=== PATIENT | female | born 1965 | race Caucasian/White ===

== ENCOUNTER → 2021-06-30 12:27 | Outpatient (CLI) | payer OTHER, MEDICAID, SELFPAY ==
--- NOTE | 2021-06-30 | DI.MG.S_ITS ---
BILATERAL DIGITAL SCREENING MAMMOGRAM 3D/2D WITH CAD: 06/30/2021 CLINICAL: Routine screening. Family history of breast cancer. Comparison is made to exams dated: 01/11/2020 mammogram, 01/11/2020 ultrasound, 03/19/2019 mammogram, and 03/12/2018 mammogram - outside. There are scattered fibroglandular elements in both breasts. Current study was also evaluated with a Computer Aided Detection (CAD) system. No significant masses, calcifications, or other findings are seen in either breast. There has been no significant interval change. IMPRESSION: NEGATIVE There is no mammographic evidence of malignancy. A 1 year screening mammogram is recommended. This exam was interpreted at Station ID: [id number]. NOTE: For mammograms, a report in lay terms will be sent to the patient. Approximately 15% of breast malignancies will not be visualized mammographically. In the management of a palpable breast mass, a negative mammogram must not discourage biopsy of a clinically suspicious lesion. Electronically Signed By: Elsa bernard/cristy:06/30/2021 14:36:58 letter sent: Normal Exam ACR BI-RADS Category 1: Negative 3341F
== END ==
PROVIDERS: PCP Family Medicine; Referring Provider Family Medicine; Visit Provider Family Medicine
DX: Z12.31 Encounter for screening mammogram for malignant neoplasm of breast (principal); Z80.3 Family history of malignant neoplasm of breast
CPT/HCPCS: 77063; 77067

== ENCOUNTER → 2022-07-02 12:46 | Outpatient (CLI) | payer OTHER, MEDICAID, SELFPAY ==
--- NOTE | 2022-07-02 | DI.MG.S_ITS ---
BILATERAL DIGITAL SCREENING MAMMOGRAM 3D/2D WITH CAD: 07/02/2022 CLINICAL: Routine screening. Family history of breast cancer. Comparison is made to exams dated: 06/30/2021 mammogram - [facility], 01/11/2020 mammogram, and 03/19/2019 mammogram - outside. There are scattered areas of fibroglandular density in both breasts (category b / 25%-50% glandular tissue). Current study was also evaluated with a Computer Aided Detection (CAD) system. No significant masses, calcifications, or other findings are seen in either breast. There has been no significant interval change. IMPRESSION: NEGATIVE There is no mammographic evidence of malignancy. A 1 year screening mammogram is recommended. Based on the Tyrer Cuzick model (a risk assessment model) the patient's lifetime risk is 7.6% and her 10 year risk is 2.9%. According to the ACR, ACS, and NCCN guidelines, an annual breast MRI exam along with mammogram is recommended if the patient's lifetime risk is 20% or greater. This exam was interpreted at Station ID: [id number]. NOTE: For mammograms, a report in lay terms will be sent to the patient. Approximately 15% of breast malignancies will not be visualized mammographically. In the management of a palpable breast mass, a negative mammogram must not discourage biopsy of a clinically suspicious lesion. Electronically Signed By: Vinnie valle/cristy:07/02/2022 13:20:13 letter sent: Normal Exam ACR BI-RADS Category 1: Negative 3341F
== END ==
PROVIDERS: PCP Family Medicine; Referring Provider Family Medicine; Visit Provider Family Medicine
DX: Z12.31 Encounter for screening mammogram for malignant neoplasm of breast (principal); Z80.3 Family history of malignant neoplasm of breast
CPT/HCPCS: 77063; 77067

== ENCOUNTER 2023-05-24 18:01 | Emergency (ER) | payer OTHER, MEDICAID, SELFPAY ==
[2023-05-24] VITALS (12 sets, daily range): BP systolic 137–165; BP diastolic 63–100; PULSE 74–88; RESP 16–20; TEMP 36.6; O2SAT 97–99; BMI 30.2
--- NOTE | 2023-05-24 18:09 | DI.RAD.S_ITS ---
PROCEDURE: XR CHEST 1V INDICATIONS: chest pain TECHNIQUE: One view of the chest was acquired. COMPARISON: None. FINDINGS: Surgical changes and devices: None. Lungs and pleura: Lungs are clear. No pleural effusions or pneumothorax. Mediastinum: Mediastinal contours appear normal. Heart size is normal. Bones and chest wall: No suspicious bony lesions. Overlying soft tissues appear unremarkable. IMPRESSION: No acute cardiopulmonary abnormality is seen. Dictated by: Tiago Trevizo M.D. on 05/24/2023 at 19:10 Approved by: Tiago Trevizo M.D. on 05/24/2023 at 19:10
[2023-05-24 18:47] LABS: Add Manual Diff / Slide Review NO; Basophils Absolute Auto 100 /uL (0-100); Basophils Percent Auto 0.8 % (0-2); Eosinophils Absolute Auto 200 /uL (0-450); Eosinophils Percent Auto 1.8 % (2-4); Hematocrit 42.2 % (36-46); Hemoglobin 14.5 g/dL (12.0-16.0); Lymphocytes Absolute Auto 4600 /uL (1100-4500); Lymphocytes Percent Auto 45.6 % (25-40); Mean Corpuscular HGB Conc 34.4 % (30-36); Mean Corpuscular Hemoglobin 30.5 PG (26-34); Mean Corpuscular Volume 88.7 fL (80-100); Monocytes Absolute Auto 700 /uL (0-900); Monocytes Percent Auto 7.4 % (3-14); Neutrophils Absolute Auto 4400 /uL (1500-7000); Neutrophils Percent Auto 44.4 % (50-75); Platelet Count 276 X10^3/uL (150-400); Red Blood Cell Count 4.76 X10^6/uL (4.0-5.2); Red Cell Distribution Width 13.4 % (11.6-14.8)
--- NOTE | 2023-05-24 18:52 | ED_ITS ---
HPI - Chest Pain General Chief Complaint: Chest Pain Stated Complaint: heart palpitations/SOB Time Seen by Provider: 05/24/23 18:25 Source: patient Mode of arrival: Ambulatory Limitations: no limitations History of Present Illness HPI narrative: 57-year-old female with history of hypothyroidism who presents with a sense of racing heart rate and palpitations and feeling a little bit short of breath or winded. Patient states she woke up feeling this way this morning it has been all day. It is never really resolved she feels it while were in the room. States no fevers or chills. No cold cough or congestion. She denies any chest pain or pressure. He is felt slightly short of breath. Denies any syncope but felt a little lightheaded. No nausea or vomiting, no issues such as diarrhea constipation, no black or bloody stools. No urinary symptoms. No swelling in extremities. Patient is on levothyroxine 112 mcg daily no recent changes. Patient states she has had a cholecystectomy more than 10 years ago, allergic to erythromycin. No tobacco, alcohol no weekend, no recreational drugs. No long distance travel, no sitting for prolonged periods, no estrogen or progesterone. Patient does not have any known cardiac history. Related Data Allergies Allergy/AdvReac Type Severity Reaction Status Date / Time erythromycin base Allergy Verified 05/24/23 19:25 Review of Systems Review of Systems ROS Unobtainable: All systems reviewed & are unremarkable except as noted in HPI and below Patient History alcohol intake frequency: a few times a week Exam Narrative Exam Narrative: GENERAL: Alert and oriented x three, female in mild distress HEENT: Head normocephalic, atraumatic, EOMI, pupils reactive, face symmetric, moist mucous membranes NECK: Supple, full range of motion CARDIOVASCULAR: Regular rate and rhythm without murmurs, rubs or gallops. No JVD. No edema bilateral lower extremities. RESPIRATORY: Breath sounds equal bilaterally, no wheezes rales or rhonchi. No tachypnea or accessory muscle use. ABDOMEN: Soft, nontender. Normoactive bowel sounds all 4 quadrants. No guarding or rebound, rigidity, no mass : No CVA tenderness EXTREMITIES: Normal range of motion, no clubbing or edema. Neurovascularly intact NEUROLOGICAL: Cranial nerves II through XII grossly intact. Moving all extremities SKIN: Warm, dry, no petechiae, no rashes or lesions. Initial Vital Signs Initial Vital Signs: Vital Signs Temperature 97.8 F 05/24/23 18:06 Pulse Rate 82 05/24/23 18:06 Respiratory Rate 16 05/24/23 18:06 Blood Pressure 162/100 H 05/24/23 18:06 Pulse Oximetry 98 05/24/23 18:06 Oxygen Delivery Method Room Air 05/24/23 18:06 Scores HEART Score Heart Score history: Slightly Suspicious Heart Score EKG: Non-Specific repolarization disturbance Heart Score Age: 45-64 years old Heart Score risk factors: No known risk factors Heart Score troponin: < or = to normal limit Heart Score Total: 2 PERC Score Age greater than or equal to 50 years: Yes Heart rate greater than or equal to 100 bpm: No Room Air O2 Sat less than 95%: No Unilateral leg swelling: No Recent trauma or surgery: No Hemoptysis: No Prior PE or DVT: No Hormone Use: No Total PERC Score: 1 Course Orders Ordered: ED Orders 05/24/23 18:09 XR chest 1V Stat 05/24/23 18:16 EKG-12 Lead Stat 05/24/23 18:30 Complete Blood Count AUTO DIFF Stat Comprehensive Metabolic Panel Stat D Dimer Stat Lipase Stat Magnesium Stat PTT Partial Thromboplastin Art Stat Prothrombin Time INR Stat TSH [Thyroid Stimulating Hormone] Stat Troponin & CK Cardiac Panel Stat Discontinued Medications Aspirin (Aspirin 81 Mg Chew Tab) 324 mg PO NOW ONE Stop: 05/24/23 18:10 Last Admin: 05/24/23 19:30 Dose: Not Given Documented By: JOSE Sodium Chloride (Normal Saline 0.9%) 1,000 mls @ 1,000 mls/hr IV BOLUS ONE Stop: 05/24/23 20:02 Last Infusion: 05/24/23 20:24 Dose: Infused Documented By: Admin: 05/24/23 19:24 Dose: 1,000 mls/hr Documented By: CORBIN Vital Signs Vital signs: Vital Signs - 8 hr 05/24/23 18:06 05/24/23 18:25 05/24/23 18:28 Temperature 97.8 F Pulse Rate 82 88 Respiratory Rate 16 Blood Pressure 162/100 H 137/65 Pulse Oximetry 98 99 Oxygen Delivery Method Room Air 05/24/23 18:28 05/24/23 18:30 05/24/23 18:30 Temperature Pulse Rate 82 84 Respiratory Rate 20 19 Blood Pressure 150/70 H Pulse Oximetry 99 98 Oxygen Delivery Method 05/24/23 19:00 05/24/23 19:00 05/24/23 19:16 Temperature Pulse Rate 81 77 Respiratory Rate 19 16 Blood Pressure 165/72 H Pulse Oximetry 98 97 Oxygen Delivery Method 05/24/23 19:16 05/24/23 19:30 05/24/23 19:30 Temperature Pulse Rate 77 Respiratory Rate 18 Blood Pressure 144/63 H 143/63 H Pulse Oximetry 97 Oxygen Delivery Method 05/24/23 20:00 05/24/23 20:01 05/24/23 20:04 Temperature Pulse Rate 74 77 Respiratory Rate 20 20 Blood Pressure 149/66 H Pulse Oximetry 98 98 Oxygen Delivery Method 05/24/23 20:04 05/24/23 20:31 05/24/23 20:32 Temperature Pulse Rate 77 82 Respiratory Rate 18 20 Blood Pressure 151/66 H Pulse Oximetry 99 97 Oxygen Delivery Method MDM - Chest Pain Lab Data 05/24/23 18:30 05/24/23 18:30 Labs: Lab Results 05/24/23 Range/Units 18:30 WBC 10.0 (4.5-11.0) X10^3/uL RBC 4.76 (4.0-5.2) X10^6/uL Hgb 14.5 (12.0-16.0) g/dL Hct 42.2 (36-46) % MCV 88.7 (80-100) fL MCH 30.5 (26-34) PG MCHC 34.4 (30-36) % RDW 13.4 (11.6-14.8) % Plt Count 276 (150-400) X10^3/uL Neut % (Auto) 44.4 L (50-75) % Lymph % (Auto) 45.6 H (25-40) % [place] % (Auto) 7.4 (3-14) % Eos % (Auto) 1.8 L (2-4) % Baso % (Auto) 0.8 (0-2) % Neut # (Auto) 4400 (6133-7806) /uL Lymph # (Auto) 4600 H (9815-1314) /uL [place] # (Auto) 700 (0-900) /uL Eos # (Auto) 200 (0-450) /uL Baso # (Auto) 100 (0-100) /uL PT 11.5 (9.4-12.5) SECONDS INR 1.0 (0.9-1.3) APTT 33 (25.1-36.5) SECONDS D-Dimer < 215 (<500) ng/ml Sodium 138 (137-145) mmol/L Potassium 3.6 (3.4-5.1) mmol/L Chloride 104 (98-107) mmol/L Carbon Dioxide 28 (22-32) mmol/L BUN 20 H (7-17) mg/dL Creatinine 0.73 (0.52-1.04) mg/dL Estimated GFR > 60 (>60) mL/min BUN/Creatinine Ratio 27.4 H (6-22) Glucose 95 (70-100) mg/dL Calcium 9.1 (8.4-10.2) mg/dL Magnesium 2.1 (1.6-2.3) mg/dL Total Bilirubin 1.3 (0.2-1.3) mg/dL AST 27 (14-36) IU/L ALT 22 (<35) IU/L Alkaline Phosphatase 81 (38-126) U/L Total Creatine Kinase 169 H (30-135) U/L Troponin I < 0.012 (0.01-0.034) ng/mL Total Protein 7.5 (6.3-8.2) g/dL Albumin 4.3 (3.5-5.0) g/dL Globulin 3.2 (1.7-4.1) g/dL Albumin/Globulin Ratio 1.3 (1.0-2.8) Lipase 136 (23-300) U/L TSH 1.16 (0.47-4.68) uIU/mL Imaging Data Chest x-ray: Radiologist's Impression: Sumi Jeong??57??F??1965 ? Allergy/Adv: erythromycin base Close Chest X-Ray (Signed) Tiago Trevizo - 05/24/23 Mammogram Screening (Signed) Vinnie Tompkins - 07/02/22 Mammogram Screening (Signed) Elsa Julio - 06/30/21 Launch?[address] [address] XRay Report Signed Patient: Sumi Jeong MR#: [id number] : 1965 Acct:[id number] Age/Sex: 57 / F Date of Service: 05/24/23 Loc: ED Accession Number: [id number] Procedure: XR chest 1V Ordering Provider: Merlene Ratliff D.O. PROCEDURE: XR CHEST 1V INDICATIONS: chest pain TECHNIQUE: One view of the chest was acquired. COMPARISON: None. FINDINGS: Surgical changes and devices: None. Lungs and pleura: Lungs are clear. No pleural effusions or pneumothorax. Mediastinum: Mediastinal contours appear normal. Heart size is normal. Bones and chest wall: No suspicious bony lesions. Overlying soft tissues appear unremarkable. IMPRESSION: No acute cardiopulmonary abnormality is seen. Dictated by: Tiago Trevizo M.D. on 05/24/2023 at 19:10 Approved by: Tiago Trevizo M.D. on 05/24/2023 at 19:10 ECG Data Attestation: I personally reviewed and interpreted this ECG as follows: Prior ECG tracings: not available for review Interpretation: Sinus rhythm with premature atrial complexes, rate 83 RI 140 QRS is 74 QTC of 394. Patient does appear to have a P wave with a QRS, does not appear to have any dropped beats or prolonging RI intervals. Patient does have some depression in lateral leads. No ST Elevation. No priors for comparison. [facility] Narrative Medical decision making narrative: 57-year-old female comes in with complaint of palpitations, racing sensation of heartbeat and a little bit of shortness of breath. No chest pain or pressure. Does have some depression in lateral leads, has frequent PACs and noted on telemetry as well but not tachycardic and does not appear to be in atrial fibrillation for have heart block. Patient symptoms starting this morning greater than 12 hours. CBC shows normal white count hemoglobin and platelets, neutrophils are low with elevation lymphocytes. INR PTT are negative, BUN 20 sodium is 138 potassium 3 6, glucose 95 with normal renal function and magnesium 2.1, LFTs are negative total CK is 169, troponin is negative TSH is normal range at 1.16 Dimer is negative Chest x-ray is negative. Patient has frequent PACs does not appear to have atrial fibrillation or block. Did have a L of fluids seems to be somewhat helpful. Patient's labs are overall appropriate and felt appropriate for discharge for follow-up. Discharge Plan Departure Patient Disposition: Home Clinical Impression: Palpitations Instructions: DI for Palpitations Activity Restrictions/Additional Instructions: Follow-up with your physician for recheck, they may order a test follow your rhythm at home such as ZIO patch or Holter monitor. Your EKG today showed frequent premature atrial complexes but no other arrhythmias or changes. Your labs overall are appropriate, chest x-ray was negative. Would recommend making sure to hydrate regularly and follow up with your physician. Please return for new or worsening chest pain, shortness of breath, passing out, new swelling in your extremities, persistently fast or irregular heart rate or other new or concerning changes. Referrals: Dae Verma MD [Primary Care Provider] - Stand Alone Forms: Patient Portal/API
[2023-05-24 18:53] LABS: Prothrombin Time 11.5 SECONDS (9.4-12.5)
[2023-05-24 18:55] LABS: PTT Partial Thromboplastin Tim 33 SECONDS (25.1-36.5)
[2023-05-24 18:57] LABS: Alanine Aminotransferase 22 IU/L (<35); Albumin 4.3 g/dL (3.5-5.0); Albumin Globulin Ratio 1.3 (1.0-2.8); Alkaline Phosphatase 81 U/L (38-126); Aspartate Aminotransferase 27 IU/L (14-36); BUN Creatinine Ratio 27.4 (6-22); Bilirubin Total 1.3 mg/dL (0.2-1.3); Blood Urea Nitrogen 20 mg/dL (7-17); Calcium 9.1 mg/dL (8.4-10.2); Carbon Dioxide 28 mmol/L (22-32); Chloride 104 mmol/L (98-107); Creatine Kinase 169 U/L (30-135); Estimated Glomerular Filt Rate > 60 mL/min (>60); Globulin 3.2 g/dL (1.7-4.1); Glucose 95 mg/dL (70-100); HEMOLYSIS < 15 (0-50); Lipase 136 U/L (23-300); Magnesium 2.1 mg/dL (1.6-2.3); Potassium 3.6 mmol/L (3.4-5.1); Sodium 138 mmol/L (137-145); Total Protein 7.5 g/dL (6.3-8.2)
[2023-05-24 19:08] LABS: Troponin I < 0.012 ng/mL (0.01-0.034)
[2023-05-24 19:22] LABS: D Dimer < 215 ng/ml (<500)
[2023-05-24] MEDS: SODIUM CHLORIDE 0.9% 1,000 ML 1000 ML IV (19:24)
[2023-05-24 20:00] LABS: Thyroid Stimulating Hormone 1.16 uIU/mL (0.47-4.68)
== END 2023-05-24 20:45 | disposition home or self-care (01) ==
PROVIDERS: Emergency Medicine; Emergency Provider Emergency Medicine; PCP Family Medicine
DX: R00.2 Palpitations (principal); R07.9 Chest pain, unspecified
CPT/HCPCS: 36415; 71045; 80053; 82550; 83690; 83735; 84443; 84484; 85025; 85379; 85610; 85730; 93005; 96360; 99284

== ENCOUNTER → 2023-07-04 12:37 | Outpatient (CLI) | payer OTHER, MEDICAID, SELFPAY ==
--- NOTE | 2023-07-04 | DI.MG.S_ITS ---
BILATERAL DIGITAL SCREENING MAMMOGRAM 3D/2D WITH CAD: 07/04/2023 CLINICAL: Routine screening. Family history of breast cancer. Comparison is made to exams dated: 07/02/2022 mammogram, 06/30/2021 mammogram - [facility], and 01/11/2020 mammogram - outside. There are scattered areas of fibroglandular density in both breasts (category b / 25%-50% glandular tissue). Current study was also evaluated with a Computer Aided Detection (CAD) system. No significant masses, calcifications, or other findings are seen in either breast. There has been no significant interval change. IMPRESSION: NEGATIVE There is no mammographic evidence of malignancy. A 1 year screening mammogram is recommended. Based on the Tyrer Cuzick model (a risk assessment model) the patient's lifetime risk is 7.4% and her 10 year risk is 3.0%. According to the ACR, ACS, and NCCN guidelines, an annual breast MRI exam along with mammogram is recommended if the patient's lifetime risk is 20% or greater. This exam was interpreted at Station ID: [id number]. NOTE: For mammograms, a report in lay terms will be sent to the patient. Approximately 15% of breast malignancies will not be visualized mammographically. In the management of a palpable breast mass, a negative mammogram must not discourage biopsy of a clinically suspicious lesion. Electronically Signed By: Bryce spears/cristy:07/04/2023 13:44:32 letter sent: Normal Exam ACR BI-RADS Category 1: Negative 3341F
== END ==
PROVIDERS: PCP Family Medicine; Referring Provider Family Medicine; Visit Provider Family Medicine
DX: Z12.31 Encounter for screening mammogram for malignant neoplasm of breast (principal); Z80.3 Family history of malignant neoplasm of breast; R92.323 Mammographic fibroglandular density, bilateral breasts
CPT/HCPCS: 77063; 77067

== ENCOUNTER → 2023-09-30 10:02 | Outpatient (CLI) | payer OTHER, MEDICAID, SELFPAY ==
--- NOTE | 2023-10-01 01:48 | DI.NM.S_ITS ---
DATE OF SERVICE: 09/30/2023 PROCEDURE: Exercise perfusion study. INDICATIONS: Palpitations, SVT. RADIOPHARMACEUTICAL: 24.0 mCi technetium-99m Myoview IV was injected at stress and 12.4 mCi technetium-99m Myoview IV was injected at rest. CARDIAC STRESS: The patient underwent exercise perfusion study under the supervision of an attending staff. She walked on Alirio protocol for 7 minutes and 20 seconds, achieved maximum heart rate of 163, which was 102% of target heart rate. Resting blood pressure of 136/76 and peak blood pressure 190/80 mmHg. BRAXTON -24%. 10.1 METS of workload. Baseline rhythm is sinus. During stress, the patient has up to [address] depression in inferior leads and about 1 to 1.[address] depression in leads V5 to V6, which got improved within 1 minute in recovery. No significant arrhythmias. No chest pain. The patient had shortness of breath during exercise. RAW DATA: There is significant breast shadow seen. GATED STUDY: Resting LV ejection fraction is 68% and stress LV ejection fraction is 74% without any obvious wall motion abnormalities. Resting end-diastolic volume 75 mL. TID ratio 0.82, which is within normal limit. Lung/heart ratio 0.32, which is within normal limit. MYOCARDIAL PERFUSION SCAN: Stress supine, resting supine, and stress prone images were compared to each other. Stress supine and resting supine images revealed small size, mildly decreased perfusion of distal anterior wall and anterior apex which got completely resolved during stress prone images suggestive of breast tissue attenuation artifact. Stress prone images revealed normal myocardial perfusion. CONCLUSION: I will call this study a normal myocardial perfusion study with evidence of breast tissue attenuation artifact, which got resolved during stress prone images. Stress prone images revealed normal myocardial perfusion. Good exercise tolerance. BRAXTON -24%. Normal hemodynamic response; however, patient has abnormal EKG changes during stress as stated above. No chest pain or significant arrhythmia. She had shortness of breath. In view of normal perfusion scan, normal LV function, no transient ischemic dilatation, good exercise tolerance, overall low-risk exercise perfusion study. Correlate clinically. Sumi Jeong - TRISHA/tabby/JOO doc#: [id number]/job#: [id number] dd: 09/30/2023 16:30:00 dt: 09/30/2023 23:34:00 DICTATING MD/COPIES TO: Gabi Do MD COPIES MNE: FABIÁN;
== END ==
PROVIDERS: PCP Family Medicine; Referring Provider Internal Medicine Cardiovascular Disease; Visit Provider Internal Medicine Cardiovascular Disease
DX: I47.10 Supraventricular tachycardia, unspecified (principal); R94.31 Abnormal electrocardiogram [ECG] [EKG]
CPT/HCPCS: 78452; 93017; A9502

== ENCOUNTER 2024-06-04 06:41 | Day surgery (SDC) | payer OTHER, SELFPAY ==
[2024-06-04 07:14] VITALS: BP 144/82; PULSE 79; RESP 17; TEMP 37.1; O2SAT 98
[2024-06-04] MEDS: LACTATED RINGERS 1,000 ML 42 ML IV (07:20)
--- NOTE | 2024-06-04 07:37 | PM.HP.IH.1 ---
History of Present Illness History of Present Illness Date Patient Seen: 06/04/24 Time Patient Seen: 07:37 Chief complaint: Colonoscopy w/poss bx Narrative: Sumi is a 58-year-old woman here for a colonoscopy. She had a colonoscopy 10 years ago with findings of polyps. She had a colonoscopy 5 years ago in [place] without polyps. She has no family history of colon cancer. ON LICENSE OF [facility] Social History Smoking Status: Never smoker Meds Home Medications and Allergies Home Medications Medication Instructions Recorded Confirmed Type peg 3350-electrolytes 236 240 ml PO Q10M #4,000 mL 04/20/24 Rx gram-22.74 gram-6.74 gram-5.86 gram solution (Golytely) levothyroxine 112 mcg tablet 112 mcg PO QAM 06/04/24 06/04/24 History metformin 500 mg tablet,extended 1,000 mg PO DAILY 06/04/24 06/04/24 History release 24 hr Allergies Allergy/AdvReac Type Severity Reaction Status Date / Time erythromycin base Allergy Verified 06/04/24 07:13 Exam Vital Signs (past 8 hours): - 06/04/24 07:14 Temperature 98.7 F Pulse Rate 79 Respiratory Rate 17 Blood Pressure 144/82 H Pulse Oximetry 98 Oxygen Delivery Method Room Air Oxygen Delivery Method Room Air Const General: healthy appearing Assessment & Plan Assessment and plan (1) History of colon polyps: Status: Acute Plan Colonoscopy. If she has no polyps again this time we could consider dropping her interval to 10 years. Time-Based Coding :: [TOTAL MINUTES] spent with patient and on the chart (including review of chart, obtaining history, exam, reviewing outside data, placing orders, documenting exam and treatment plan, and counseling patient) on [DATE]. [employer] Document charge(s): No
[2024-06-04 08:01] VITALS: BP 100/57; PULSE 72; RESP 14; TEMP 36.3; O2SAT 97
--- NOTE | 2024-06-04 08:04 | PM.OP.COLON ---
Operative Date/Time/Diagnoses Date of procedure: 06/04/24 Time of procedure: 08:04 Pre-op diagnosis: History of polyps Post-op diagnosis: same Procedure & Clinicians Study performed: Colonoscopy Same procedure as scheduled: Yes Surgeon: Gerardo Ledbetter Procedure Notes Procedure in detail: Surgeon: Gerardo Ledbetter MD Anesthesia: Rema Varma CRNA Procedure: The patient was brought to the endoscopy suite, placed in left lateral decubitus position. The patient was connected to monitoring devices. A time-out was performed. Sedation was administered. Once the patient was adequately sedated, a digital rectal exam was performed and was normal. The scope was then inserted and advanced to the cecum where the appendiceal orifice was identified and photographed. The scope was then slowly withdrawn over greater than 6 minutes. The mucosa was thoroughly inspected. No abnormalities were found. The scope was retroflexed in the rectum. The scope was straightened and removed. The patient was awakened and brought to recovery. Scope withdrawal time: 10 minutes Sedation time: 15 minutes EBL: 0 Findings: Normal colon Post-procedure Recommendations: Colonoscopy in 10 years Disposition: PACU
[2024-06-04 08:06] VITALS: BP 112/63; PULSE 69; RESP 18; O2SAT 97
[2024-06-04 08:12] VITALS: BP 123/69; PULSE 78; RESP 18; TEMP 36.4; O2SAT 99
[2024-06-04 08:16] VITALS: BP 130/62; PULSE 70; RESP 16; O2SAT 99
== END 2024-06-04 08:32 | disposition home or self-care (01) ==
PROVIDERS: PCP Registered Nurse; Referring Provider Surgery; Visit Provider Surgery
PROC: 0DJD8ZZ Inspection of Lower Intestinal Tract, Via Natural or Artificial Opening Endoscopic (ICD-10-PCS; CPT 45378; principal; 2024-06-04 07:45)
DX: Z12.11 Encounter for screening for malignant neoplasm of colon (principal); Z86.0100 Personal history of colon polyps, unspecified
CPT/HCPCS: 45378; J2704

== ENCOUNTER → 2024-07-06 12:43 | Outpatient (CLI) | payer OTHER, SELFPAY ==
--- NOTE | 2024-07-06 12:45 | DI.MG.S_ITS ---
MM screening mammo BI: 07/06/2024. BI-RADS: 1 CLINICAL: 59-year old female for bilateral screening mammogram. Tyrer-Cuzick lifetime risk of 11.7%. Current reported family history of breast cancer: sister. PRIOR EXAMS 07/04/2023, 07/02/2022, 06/30/2021. MAMMOGRAPHY TECHNIQUE: 2D and 3D (tomosynthesis) digital mammographic views obtained, with additional images as needed for full coverage. Current study was also evaluated with a Computer Aided Detection (CAD) system. DENSITY B. There are scattered areas of fibroglandular density. MAMMOGRAPHY FINDINGS Bilateral: No suspicious mass, asymmetry, microcalcification, or other abnormality seen. No significant change from comparison. IMPRESSION: * No evidence of malignancy. RECOMMENDATIONS Bilateral * Annual screening mammography. OVERALL ASSESSMENT CATEGORY BI-RADS-1: Negative. The [employer] recommends annual screening mammography beginning at age 40 for women with average risk of breast cancer. ELECTRONICALLY SIGNED: Yana Panda M.D. on 07/06/2024 at 05:36:51 PM PT Interpreting Station ID: [id number]
== END ==
PROVIDERS: PCP Registered Nurse; Referring Provider Family Medicine; Visit Provider Family Medicine
DX: Z12.31 Encounter for screening mammogram for malignant neoplasm of breast (principal); Z80.3 Family history of malignant neoplasm of breast
CPT/HCPCS: 77063; 77067

== ENCOUNTER → 2024-09-22 06:46 | Outpatient (CLI) | payer OTHER, SELFPAY ==
--- NOTE | 2024-09-22 06:48 | DI.US.S_ITS ---
PROCEDURE: US PELVIC COMPLETE INDICATIONS: uterine cramping TECHNIQUE: Real-time scanning was performed of the pelvic organs, with image documentation. Additional endovaginal scanning was necessary due to incomplete visualization of the adnexal and endometrial structures by transabdominal scanning. COMPARISON: None. FINDINGS: Uterus: Uterus is anteverted and normal in size at 4.5 x 3.9 x 3.4 cm. The myometrium is heterogeneous. The endometrium measures 10.2 mm combined thickness. Ovaries: The right ovary measures 1.6 x 1.0 x 0.8 cm, with a calculated ovarian volume of 0.7 cc. The left ovary measures 1.4 x 1.6 x 0.7 cm, with a calculated ovarian volume of 0.9 cc. The ovaries have a normal sonographic appearance. Less than 12 follicles can be seen in each ovary. No adnexal masses are seen. Other: No pathologic free abdominal or pelvic fluid. IMPRESSION: Thickened endometrium to 10 mm in the setting of postmenopausal bleeding. Recommend OBGYN follow-up for possible endometrial biopsy. Approved by: Jan Sandoval M.D. on 09/22/2024 at 10:53
== END ==
PROVIDERS: PCP Registered Nurse; Referring Provider Registered Nurse; Visit Provider Registered Nurse
DX: N94.89 Other specified conditions associated with female genital organs and menstrual cycle (principal); R31.9 Hematuria, unspecified; R93.89 Abnormal findings on diagnostic imaging of other specified body structures; Z87.42 Personal history of other diseases of the female genital tract
CPT/HCPCS: 76830; 76856

== ENCOUNTER → 2024-09-25 10:16 | Outpatient (CLI) | payer OTHER, SELFPAY ==
--- NOTE | 2024-09-25 10:17 | DI.RAD.S_ITS ---
PROCEDURE: XR DEXA AXIAL SKELETON INDICATIONS: osteoporosis screening COMPARISON: None. FINDINGS: Lumbar Spine: Bone mineral density 0.907 g/cm2, T score -1.3, baseline. Left Femoral Neck: Bone mineral density 0.626 g/cm2, T score -2. Left Hip: Bone mineral density 0.718 g/cm2, T score -1.8, baseline. Fracture Risk Calculation (when applicable): Rheumatoid arthritis history 10-year fracture risk of a major osteoporotic fracture 12 percent and of a hip fracture 1.6 percent. (T score greater or equal to -1.0 to: NORMAL) (T score from -1.1 to -2.4: OSTEOPENIA) (T score less than or equal to -2.5: OSTEOPOROSIS) IMPRESSION: Osteopenia Follow-up guidelines as follows: Osteoporosis: Consider a repeat DEXA and Vertebral Fracture Assessment (VFA) exam in 2 years or sooner if medically necessary, to reassess this patient's status. Osteopenia: Consider a repeat DEXA in 2-3 years to reassess this patient's status, or if there is a new clinical indication. Normal: Consider a repeat DEXA in 5 years or sooner, or if there is a new clinical indication. All treatment decisions require clinical judgment and consideration of individual patient factors, including patient preferences, comorbidities, previous drug use, risk factors not captured in the FRAX model (e.g., frailty, falls, vitamin D deficiency, increased bone turnover, interval significant decline in bone density ) and possible under- or over-estimation of fracture risk by FRAX. In addition, the NOF Guide recommends that FDA-approved medical therapies be considered in postmenopausal women and men age >= 50 years with a: * Hip or vertebral (clinical or morphometric) fracture * T-score of <=-2.5 at the spine or hip * Ten-year fracture probability by FRAX of >= 3% for hip fracture or >=20% for major osteoporotic fracture. Dictated by: Tiago Trevizo M.D. on 09/25/2024 at 16:33 Approved by: Tiago Trevizo M.D. on 09/25/2024 at 16:34
== END ==
PROVIDERS: PCP Registered Nurse; Referring Provider Registered Nurse; Visit Provider Registered Nurse
DX: Z13.820 Encounter for screening for osteoporosis (principal); M85.89 Other specified disorders of bone density and structure, multiple sites; Z78.0 Asymptomatic menopausal state
CPT/HCPCS: 77080

== ENCOUNTER 2024-10-29 06:25 | Day surgery (SDC) | payer OTHER, SELFPAY ==
[2024-10-26 14:40] VITALS: BMI 30.9
[2024-10-29] VITALS (7 sets, daily range): BP systolic 120–145; BP diastolic 59–78; PULSE 74–85; RESP 16–20; TEMP 36.2; O2SAT 98; BMI 30.6
--- NOTE | 2024-10-29 | PATH_ITS ---
[facility] Accession Number: [id number] No. of containers..03 Tissue . 01 Material submitted: . PART A: endometrium - ENDOMETRIAL POLYP PART B: endocervix - ENDOCERVICAL CURETTINGS PART C: endometrium - ENDOMETRIAL CURETTINGS . 01 Diagnosis: A. ENDOMETRIAL POLYP, EXCISION: Endometrial polyp. Fragments of benign endometrium and myometrium. No atypia or malignancy is identified. . B. ENDOCERVIX, CURETTAGE: Atrophic squamous epithelium with no neoplasm identified. . C. ENDOMETRIUM, CURETTAGE: Atrophic endometrium. Atrophic squamous epithelium. No neoplasm is identified. [facility] 11/05/2024 1657 Local . 01 Electronically signed: . Nithin Galicia MD, Dermatopathologist NPI- [id number] . 01 Gross description: . Part A: ENDOMETRIAL POLYP: Received in formalin are minute fragments of mucoid and hemorrhagic material measuring 1.5 x 1.5 x 0.2 cm in aggregate. Submitted in toto in 1 cassette. Part B: ENDOCERVICAL CURETTINGS: Received in formalin are minute fragments of mucoid and hemorrhagic material measuring 1.0 x 1.0 x 0.1 cm in aggregate. Submitted in toto in 1 cassette. Part C: ENDOMETRIAL CURETTINGS: Received in formalin are minute fragments of mucoid and hemorrhagic material measuring 0.8 x 0.8 x 0.1 cm in aggregate. Submitted in toto in 1 cassette. /[place] 11/04/2024 0134 Local . 01 Pathologist provided ICD-10: N95.0, N84.0, N85.8, N88.8 . 01 CPT . 524105, 203195, [id number] Specimen Comment: A courtesy copy of this report has been sent to [phone] Performed at: [address] [facility], [place], [place] [id number] MD Enoch Marquez MD Phone: [phone]
[2024-10-29] MEDS: FAMOTIDINE 20 MG/2 ML VIAL IV (07:06)
[2024-10-29] MEDS: LACTATED RINGERS 1,000 ML 42 ML IV (07:06)
--- NOTE | 2024-10-29 07:48 | PM.PREOP ---
Pre-operative Note COVID-19 COVID-19 status: Not tested Interval Note History & Physical reviewed/Exam performed by Physician: Yes Changes to H&P: No
--- NOTE | 2024-10-29 08:16 | SUR.OPER ---
Lithotomy on padded OR bed, head on pillow, arms secured on padded arm boards at <90 degrees abduction. strap across chest. Legs secured in padded yellow fins stirrups.
--- NOTE | 2024-10-29 09:03 | P.OP_ITS ---
Operative Date/Time/Diagnoses Date of procedure: 10/29/24 Time of procedure: 08:00 Pre-op diagnosis: Postmenopausal bleeding Endometrial thickening Post-op diagnosis: other (Same as above; endometrial polyp) Procedure & Clinicians Procedure: Procedures Operation Date: 10/29/24 07:45 Actual Procedure Side Surgeon p Hysteroscopic polypectomy, D&C Not Applicable David Novak MD Indications: Mariah Hebert is a 59-year-old , presenting for evaluation due to recurrent episode of postmenopausal spotting/bleeding. Patient experienced menarche at age 10 and has had regular predictable menses throughout her adult life. Patient has never used HRT and went through menopause at about age [phone] she had an episode of vaginal bleeding about 18 months after her last normal menstrual period, was evaluated and found to have a 10 mm endometrial stripe. Endometrial biopsy was negative and she subsequently underwent dilation and curettage with no abnormality found on histology from the D&C itself. It is unknown at this time whether not she underwent hysteroscopy at the same time. Patient as some pelvic cramping and abdominal discomfort at the times that she has these episodes of spotting which recurred in July 2024. She does not have these pains at other times. Her most recent pelvic ultrasound was performed on 09/22/2024 and shows: FINDINGS: Uterus: Uterus is anteverted and normal in size at 4.5 x 3.9 x 3.4 cm. The myometrium is heterogeneous. The endometrium measures 10.2 mm combined thickness. Ovaries: The right ovary measures 1.6 x 1.0 x 0.8 cm, with a calculated ovarian volume of 0.7 cc. The left ovary measures 1.4 x 1.6 x 0.7 cm, with a calculated ovarian volume of 0.9 cc. The ovaries have a normal sonographic appearance. Less than 12 follicles can be seen in each ovary. No adnexal masses are seen. Other: No pathologic free abdominal or pelvic fluid. IMPRESSION: Thickened endometrium to 10 mm in the setting of postmenopausal bleeding. Recommend OBGYN follow-up for possible endometrial biopsy. Patient states that she is has been under tremendous amount of strain and stress recently due to deaths in the family. She has no other ongoing gynecologic complaints or concerns. We had an extensive discussion regarding potential causes for her episodic postmenopausal spotting/bleeding. Patient was thoroughly evaluated for similar symptoms in 2017 with all findings at that time benign according to the patient. Unfortunately no records are currently available for review. We discussed options including endometrial sampling and/or hysteroscopy with dilation and curettage and the patient would like to proceed with the latter. She understands that there may be no pathological findings found and should that be the case hysterectomy or endometrial ablation may be required to stopped the episodic bleeding if it persists in the face of negative histologic evaluation of the endometrium. Case request submitted for hysteroscopy with dilation and curettage. She presents today for her scheduled surgery. Surgeon: David Novak Anesthesia Type: General Operative Notes Findings: The endometrial cavity is normal in size and shape. The endometrium is largely atrophic with the exception of a polyp arising from the left side of the endometrial cavity and extending up toward the fundus. The polyp itself was removed in its entirety during the course of the surgery. The remainder of the cavity and endocervical canal were unremarkable. The patient does have first- degree uterovaginal prolapse, second-degree cystocele, and second-degree enterocele/rectocele complex. Closure Type: not applicable Specimen(s): endometrial curettings, endometrial polyp and other (Endocervical curettings) Applied: none Estimated blood loss (mL): 15 Blood products transfused: none Procedure in detail: With the patient under satisfactory general anesthesia in the modified dorsal lithotomy position, the vulva, perineum, and vagina were prepped and draped in the usual manner for hysteroscopy. A pre-surgical safety time-out was then taken in accordance with [facility] OR protocols. A bivalve speculum was then inserted in the vagina and the cervix visualized. The anterior lip of the cervix was then grasped with a single-tooth tenaculum and the endocervical canal was dilated to 7 mm with Hegar dilators. A hysteroscope was then placed through the endocervical canal into the endometrial cavity and the findings photographs quickly documented. The polyp arising from the left side of the endometrial cavity was thoroughly inspected and documented. A MyoSure Lite device was then introduced through the hysteroscope and the polyp completely resected. That is specimen was submitted separately as an endometrial polyp. Fractional dilation and curettage of the uterus was then performed with an endocervical curettage followed by endometrial curettings. Each was submitted as a separate pathologic specimen. The tenaculum was then removed from the cervix and no significant bleeding was noted. The speculum was then removed from the vagina and the procedure terminated. The patient was then awakened from anesthesia and transferred to the PACU after having tolerated the procedure well. Complications: none Post-operative Condition: stable Disposition: PACU Plan for aftercare: Routine postoperative care with follow-up planned for 2 weeks after surgery
== END 2024-10-29 09:29 | disposition home or self-care (01) ==
PROVIDERS: PCP Registered Nurse; Referring Provider Obstetrics & Gynecology; Visit Provider Obstetrics & Gynecology
PROC: 0UDB8ZZ Extraction of Endometrium, Via Natural or Artificial Opening Endoscopic (ICD-10-PCS; CPT 58558; principal; 2024-10-29 07:45)
DX: N95.0 Postmenopausal bleeding (principal); N84.0 Polyp of corpus uteri; N81.2 Incomplete uterovaginal prolapse; N85.8 Other specified noninflammatory disorders of uterus
CPT/HCPCS: 58558; 82962; J1100; J1885; J2250; J2405; J2704; J3010